=== PATIENT | female | born 1975 | race Caucasian/White ===

== ENCOUNTER → 2023-06-17 11:35 | Outpatient (BNVA) | payer BC, SELFPAY | PROVIDERS: PCP Nurse Practitioner Family; Visit Provider Nurse Practitioner Family | DX: I10 Essential (primary) hypertension (principal); E55.9 Vitamin D deficiency, unspecified; E53.8 Deficiency of other specified B group vitamins; M67.472 Ganglion, left ankle and foot; M06.9 Rheumatoid arthritis, unspecified; M32.9 Systemic lupus erythematosus, unspecified; M79.7 Fibromyalgia | CPT/HCPCS: 80053; 80061; 82306; 82607; 84443; 85025 ==